=== PATIENT | male | born 1975 | race African-American/Black ===

== ENCOUNTER 2020-06-25 01:21 | Emergency (ER) | payer OTHER ==
[2020-06-25 02:34] LABS: HBSAB Concentration Less than 8.00 mIU/mL; HIV (1/2) Antibody/Antigen Non-Reactive (NonReactive); HIV 1/2 INDEX 0.09 S/CO (<1.00); Hep B Surf AB Non-Reactive (NonReactive); Hep C IgG Ab Non-Reactive (NonReactive); Hep C Index 0.07 S/CO (0-0.79)
== END 2020-06-25 01:45 | disposition home or self-care (01) ==
LOC: ERS 01:21
DX: Z77.21 Contact with and (suspected) exposure to potentially hazardous body fluids (principal)
CPT/HCPCS: 36415; 86706; 86803; 87389; 99283

== ENCOUNTER 2021-04-28 19:00 | Emergency (ER) | payer OTHER ==
[2021-04-28] MEDS ORDERED: Morphine 4 MG/ML VIAL ONE (19:39)
[2021-04-28 19:47] LABS: #Basophils 0.1 thou/uL (0.0-0.2); #Eosinphils 0.1 thou/uL (0.0-0.7); #Lymphocytes 2.5 thou/uL (1.20-3.40); #Monocytes 0.6 thou/uL (0.11-0.59); #Neutrophils 7.2 thou/uL (1.40-6.50); %Basophils 0.5 % (0.0-1.0); %Eosinophils 0.8 % (0.0-10.0); %Lymphocytes 23.6 % (21.0-51.0); %Monocytes 6.1 % (0.0-10.0); Hemoglobin 14.7 g/dL (14.0-18.0); Mean Corpuscular HGB CONC 33.3 g/dL (32.0-36.0); Mean Corpuscular Hemoglobin 32.1 pg (27.0-31.0); Mean Corpuscular Volume 96.3 fL (78.0-98.0); Mean Platelet Volume 6.6 fL (7.4-10.4); Platelet Count 393 thou/uL (130-400); Red Blood Cell (RBC) Count 4.58 mill/uL (4.70-6.10); White Blood Cell (WBC) Count 10.5 thou/uL (4.8-10.8)
[2021-04-28 20:19] LABS: ALT (SGPT) 38 U/L (8-55); AST (SGOT) 72 U/L (5-34); Albumin 4.2 g/dL (3.5-5.0); Alkaline Phosphatase 72 U/L (40-110); Anion Gap 15 mmol/L (10-20); BUN (Urea Nitrogen) 14 mg/dL (8.9-20.6); Bilirubin, Total 1.1 mg/dL (0.2-1.2); Calc. Creatinine Clearance 0 mL/min (70-130); Calcium 9.1 mg/dL (7.8-10.44); Carbon Dioxide 23 mmol/L (22-29); Chloride 106 mmol/L (98-107); Globulin 4.2 g/dL (2.4-3.5); Glucose 108 mg/dL (70-105); Lipase Less than 4 U/L (8-78); Potassium 5.1 mmol/L (3.5-5.1); Protein, Total 8.4 g/dL (6.0-8.3); Sodium 139 mmol/L (136-145)
[2021-04-28 21:43] LABS: Bilirubin Negative (Negative); Blood, Urine Negative (Negative); Clarity Clear (Clear); Glucose, Urine (Dipstick) Normal (Negative); Ketone, Urine Negative (Negative); Leukocyte Negative Leu/uL (Negative); Nitrite Negative (Negative); Protein, Urine (Dipstick) Negative (Neg-Trace); Specific Gravity, Urine 1.022 (1.002-1.036); Urobilinogen Normal mg/dL (Less than 2); pH, Urine 5.5 (5.0-9.0)
[2021-04-28] MEDS ORDERED: HYDROcodone/Acetaminophen 10/325 mg Tablet ONE (22:20)
== END 2021-04-28 22:29 | disposition home or self-care (01) ==
LOC: ERS 19:00
DX: K80.20 Calculus of gallbladder without cholecystitis without obstruction (principal); I10 Essential (primary) hypertension; E78.5 Hyperlipidemia, unspecified; Z79.82 Long term (current) use of aspirin; Z79.899 Other long term (current) drug therapy
CPT/HCPCS: 76705; 80053; 81003; 83690; 85025; 96374; J2270

== ENCOUNTER 2021-04-29 12:22 | Outpatient (CLI) | payer OTHER ==
[2021-04-30 00:50] LABS: SARS-CoV-2 PCR by NAA Not Detected (NotDetected)
== END 2021-04-29 12:23 | disposition home or self-care (01) ==
LOC: LABBT 12:22
PROVIDERS: ATTEND Surgery
DX: Z01.812 Encounter for preprocedural laboratory examination (principal); Z20.822 Contact with and (suspected) exposure to COVID-19
CPT/HCPCS: U0003; U0005

== ENCOUNTER 2021-05-01 09:42 | Day surgery (SDC) | payer OTHER ==
[2021-04-30 10:52] VITALS: BMI 37.3
[2021-05-01] MEDS ORDERED: Lidocaine 1% w/Epinephrine 1:100K 20 ML VIAL ONE ×2 (12:16→12:26)
[2021-05-01] MEDS ORDERED: Iothalamate Meglumine 60% 50 ML VIAL FS ONE (12:16)
[2021-05-01] MEDS ORDERED: Bupivacaine 0.25% HCL 30 ML VIAL ONE ×2 (12:16→12:26)
[2021-05-01] MEDS ORDERED: Fentanyl 100 MCG/2 ML VIAL ONE ×2 (12:23→13:56)
[2021-05-01] MEDS ORDERED: Midazolam HCl 2 mg/2 ml Vial ONE (12:23)
[2021-05-01] MEDS ORDERED: Rocuronium Bromide 10 MG/ML (10ML VIAL) ONE (12:32)
[2021-05-01] MEDS ORDERED: PROPOFOL 200 MG/20 ML VIAL ONE (12:32)
[2021-05-01] MEDS ORDERED: Glycopyrrolate 0.2 MG/ML 5 ML SYRINGE ONE (12:32)
[2021-05-01] MEDS ORDERED: Dexamethasone 20 MG/5 ML VIAL ONE (12:32)
[2021-05-01] MEDS ORDERED: Ketorolac Tromethamine 30 MG/ML VIAL ONE (12:32)
[2021-05-01] MEDS ORDERED: Lidocaine 1% PF 5 ML VIAL ONE ×2 (12:32)
[2021-05-01] MEDS ORDERED: Ondansetron PF 4 MG/2 ML Vial ONE (12:32)
[2021-05-01] MEDS ORDERED: SUGAMMADEX SODIUM 200 MG/2 ML VIAL ONE (13:14)
[2021-05-01] MEDS ORDERED: HYDROcodone/Acetaminophen 5/325 mg Tablet ONE (14:50)
== END 2021-05-01 16:00 | disposition home or self-care (01) ==
LOC: SDC 09:42
PROVIDERS: ATTEND Surgery
PROC: 0FT44ZZ Resection of Gallbladder, Percutaneous Endoscopic Approach (ICD-10-PCS; principal; 2021-05-01)
PROC: BF101ZZ Fluoroscopy of Bile Ducts using Low Osmolar Contrast (ICD-10-PCS; principal; 2021-05-01)
DX: K80.12 Calculus of gallbladder with acute and chronic cholecystitis without obstruction (principal); E78.5 Hyperlipidemia, unspecified; Z79.82 Long term (current) use of aspirin; Z79.899 Other long term (current) drug therapy
CPT/HCPCS: 47532; 88304; J0690; J1100; J1610; J1885; J2250; J2405; J2704; J3010; Q9961; S0020